=== PATIENT | male | born 1985 ===

== ENCOUNTER 2018-08-05 19:12 | Emergency (ER) | payer SELFPAY ==
[~2018-08-05] VITALS: Ht 167.6 cm; Wt 101.0 kg
[2018-08-05 19:25] VITALS: BP 160/90; PULSE 97; RESP 18; Ht 167.6 cm; Wt 101.0 kg
== END 2018-08-05 22:17 | disposition left against medical advice (07) ==
LOC: E/R 19:12
DX: Z53.21 Procedure and treatment not carried out due to patient leaving prior to being seen by health care provider (principal)